=== PATIENT | female | born 1965 | race Caucasian/White ===

== ENCOUNTER 2023-03-10 09:45 | Outpatient (REF) | payer SELFPAY ==
[2023-03-12 23:53] LABS: TS Negative Control Passed; TS Panel A 0; TS Panel B 0; TS Positive Control Passed; TSpotTB Negative (Negative)
== END 2023-03-10 09:46 | disposition home or self-care (01) ==
LOC: HO.HSH 09:45
PROVIDERS: Visit Provider Internal Medicine
DX: Z02.1 Encounter for pre-employment examination (principal)
CPT/HCPCS: 36415; 86481

== ENCOUNTER 2025-08-17 22:08 | Inpatient (IN) | payer OTHER, SELFPAY ==
--- NOTE | ~2025-08-17 | NM_ITS ---
EXERCISE MYOCARDIAL PERFUSION STUDY INDICATION: Elevated troponin and chest pain to evaluate for myocardial ischemia TECHNIQUE: The patient was brought in for an exercise perfusion study on 08/20/2025. Patient performed exercise as per Sb protocol and was injected 30 mCi of sestamibi once target heart rate was achieved. Images were obtained using the SPECT gamma camera interlaced with the gating device. Images were obtained in supine position. Resting perfusion study was performed on 08/20/2025. Patient was administered 10 mCi of sestamibi intravenously at rest. Images were then obtained in supine position. Images obtained without without CT attenuation. Total DLP 61 mGy-cm. Images were processed with the software and compared side to side in short axis, horizontal long axis and vertical long axis views. FINDINGS: Raw images were reviewed The stress perfusion study showed nonattenuated images show minimal thinning of the basal septum as well as basal inferior wall of the LV myocardium. Remainder of the LV myocardium is normally perfused. Attenuated corrected images show minimal thinning of the apex of the LV myocardium. The gated study shows normal LV systolic function with calculated LVEF of 69%. LV cavity is normal in size. The gated study shows normal systolic wall thickening and contraction of segments. Resting study shows no change in perfusion pattern compared to stress perfusion study. Gating at rest reveals normal systolic wall motion with ejection fraction at 65%. The findings are consistent with normal myocardial perfusion. NM/NM jac perf SPECT rest & str IMPRESSION: 1. Myocardial perfusion imaging study shows normal myocardial perfusion. 2. Gated LVEF is 69%. 3. Transient ischemic dilatation not present. EKG revealed negative for ischemia. Electronically signed by: Fuad Zuniga MD 08/20/2025 01:16 PM EDT
--- NOTE | ~2025-08-17 | XR_ITS ---
CLINICAL HISTORY: cp 1 view chest x-ray Comparison: None provided Findings: Lungs are well inflated. Cardiac silhouette is within normal limits. No focal areas of consolidation. A few areas of apparent increased density within the right lung are likely related to areas of increased density within the right anterior 4th, 5th, and 6th ribs. No pleural effusion or pneumothorax. IMPRESSION: 1. No acute findings. This document has been electronically signed by: Issac Vidales MD on 08/18/2025 00:34:34
--- NOTE | 2025-08-17 22:14 | ECG_ITS ---
Test Reason : CHEST PAIN Blood Pressure : */* mmHG Vent. Rate : 96 BPM Atrial Rate : 96 BPM P-R Int : 136 ms QRS Dur : 84 ms QT Int : 340 ms P-R-T Axes : 82 40 72 degrees QTcB Int : 429 ms Normal sinus rhythm Normal ECG When compared with ECG of 17-Aug-2025 22:12, No significant change was found Referred By: Rae Spaulding Electronically Signed By: MILLY SCHROEDER
[2025-08-17 22:21] VITALS: BP 109/74; PULSE 89; RESP 16; TEMP 36.7; O2SAT 96; BMI 21.7
[2025-08-17 22:37] LABS: MANUAL DIFF FLAG NO
[2025-08-17 22:38] LABS: Hematocrit 37.0 % (37.0-47.0); Hemoglobin 13.0 g/dl (12.0-16.0); Imm Gran Abs Auto 0.06 X10*3/uL (0.00-0.03); Imm Gran Pct Auto 0.5 % (0.0-0.4); Lymphocytes Absolute Auto 4.9 X10*3/uL (1.2-4.9); Mean Corpuscular HGB Conc 35.1 g/dl (31.0-35.0); Mean Corpuscular Hemoglobin 31.0 pg (27.0-33.0); Mean Corpuscular Volume 88.3 fL (80.0-98.0); NRBC Abs Auto 0.000 X10*3/uL (0.0-0.012); NRBC Pct Auto 0.0 /100WBC (0.0-0.2); Platelet Count 292 X10*3/uL (160-400); Red Blood Count 4.19 X10*6/uL (4.20-5.50); White Blood Count 11.3 X10*3/uL (4.8-10.8)
[2025-08-17 22:51] LABS: Alanine Aminotransferase 40 U/L (0-31); Albumin Level 4.5 g/dL (3.5-5.0); Alkaline Phosphatase 106 U/L (39-117); Anion Gap 12 (12-20); Aspartate Amino Transferase 50 U/L (5-31); Blood Urea Nitrogen 28 mg/dL (9-16); Calcium 9.3 mg/dL (8.4-10.2); Carbon Dioxide 24 mmol/L (22-29); Chloride 109 mmol/L (96-108); Creatinine Clr Calc Pharmacy 38.6; Estimated Glomerular Filt Rate 45; Potassium 4.3 mmol/L (3.3-5.1); Sodium 141 mmol/L (135-145); Total Protein 6.9 g/dL (6.5-8.0)
[2025-08-17 22:58] LABS: Troponin-I High Sensitivity 30.5 ng/L (<3.5-17.0)
[2025-08-17 23:16] VITALS: BP 115/71; PULSE 101; RESP 18; TEMP 36.8; O2SAT 94
--- NOTE | 2025-08-17 23:28 | PC.NURSE ---
this Rn assumed care of pt, pt states chest pain started earlier today, no trauma. first time this has happened, chest pain was more like pressure with aching in the back, reports taking her HR and it was 60 an then 140, she came in to the ED. pt hx of high b/p, did not take medication today as b/p was low systolic 100 per pt. current b/p 115/71. HR currently 98%, pt placed on monitor, other v/s WNL. pt states chest pressure has now resolved.
--- NOTE | 2025-08-17 23:34 | ED_ITS ---
HPI - Chest Pain General Chief Complaint: Chest Pain Stated Complaint: CP increase heart rate Time Seen by Provider: 08/17/25 23:20 History of Present Illness HPI narrative: Patient is a 59-year-old female presents today with having chest pain since approximately 13:00. The pain is sharp it is mid chest. Has fairly constant associated with some shortness of breath earlier worse with deep breath earlier. Patient denies any history of diabetes, hypertension, high cholesterol, smoking, mi. no history of travel. No history of leg swelling no history of blood clots no history of tumor no history of hormone replacement. Patient claims that on the drive in the symptoms seems to have improved and currently has no pain. No history of risk stratification done in the past. Patient's BMI is normal at 21.7. Related Data Allergies Allergy/AdvReac Type Severity Reaction Status Date / Time No Known Allergies Allergy Verified 08/17/25 22:22 Review of Systems 2 Review of Systems: Positive chest pain Yes all other systems are reviewed and are negative PMFSH Past Medical History Attestation statement: The following information was validated with the patient. Social History Social History Smoked in Last 30 Days: No Use of substances other than those prescribed or required for medical reasons: No Advance Directives: No Advance Directives Information Provided: Yes Physical Exam 2 Exam: Exam: Appearance: Alert. Oriented X3. No acute distress. Eyes: Pupils equal, round and reactive to light. ENT: Pharynx normal. Neck: Normal inspection. Neck supple. No lymph nodes noted. No crepitus CVS: Normal heart rate and rhythm. Pulses normal. Normal S1 and S2 Respiratory: No respiratory distress. Breath sounds normal. No Wheezing. No rales Abdomen: Soft and nontender. No rigidity. No distention. good BS x4 Skin: Skin warm and dry. Normal skin color. Normal skin turgor. Extremities: No lower extremity edema. Neurovascular intact to all extremities. No Lacerations. No Rash Neuro: Oriented X 3. No motor deficit. No sensory deficit. Moving all extermities. No slurred speech Vital Signs: Vital Signs: Last Vital Signs Temp 98.2 F 08/17/25 23:16 Pulse 101 H 08/17/25 23:16 Resp 18 08/17/25 23:16 BP 115/71 08/17/25 23:16 Pulse Ox 94 08/17/25 23:16 O2 Del Method Room Air 08/17/25 23:16 BMI result Body Mass Index 21.7 Medical Decision Making Medical Decision Making [facility] Narrative: Well-appearing no acute distress my interpretation patient's EKG showed a sinus rhythm heart rate is 100 ME QRS QTC normal no acute ST segment elevation interestingly patient has an slightly increased heart rate has chest pain that is worse with deep inspiration a D-dimer was ordered otherwise there is no calf tenderness there is no other risk for PE. Patient's troponin 1st set came back at 30. Significantly elevated. A 2nd EKG being done. A 2nd troponin being done. Will monitor very carefully. Currently pain free. Already took a full aspirin prior to arrival. My interpretation patient's repeat EKG showed a sinus rhythm heart rate again is about 100 ME QRS QTC normal no acute ST segment elevation noted 2nd troponin is now pending. Second EKG was done at 23:43. Patient's troponin went from 30-39. Started patient on Lovenox. Case discussed with cardiology agree with plan of admission case discussed with hospitalist service patient to be admitted. Patient made aware of the finding. Differential Diagnosis Differential Diagnoses: The differential diagnosis associated with the presentation includes NSTEMI versus STEMI versus PE versus pneumonia Admission/Observation Consideration of admission/observation: Escalation of care including admission/observation considered Consult Healthcare Provider Management of the patient was discussed with: Hospitalist and Patient Access Director (Cardiology) Lab Data [facility] Lab Attestation statement: I reviewed the patient's lab results. 08/17/25 22:31 08/17/25 22:31 Labs: Lab Results 08/17/25 08/17/25 Range/Units 22:31 23:53 WBC 11.3 H (4.8-10.8) X10*3/uL RBC 4.19 L (4.20-5.50) X10*6/uL Hgb 13.0 (12.0-16.0) g/dl Hct 37.0 (37.0-47.0) % MCV 88.3 (80.0-98.0) fL MCH 31.0 (27.0-33.0) pg MCHC 35.1 H (31.0-35.0) g/dl RDW 12.0 (11.0-16.0) % Plt Count 292 (160-400) X10*3/uL MPV 8.3 L (9.4-12.3) fL Immature Gran % (Auto) 0.5 H (0.0-0.4) % Neut % (Auto) 47.1 (45-73) % Lymph % (Auto) 43.2 H (20-40) % Day % (Auto) 7.5 (2-11) % Eos % (Auto) 1.3 (0-4) % Baso % (Auto) 0.4 (0-2) % Lymph # (Auto) 4.9 (1.2-4.9) X10*3/uL Day # (Auto) 0.9 (0.1-1.2) X10*3/uL Eos # (Auto) 0.2 (0.0-0.4) X10*3/uL Baso # (Auto) 0.1 (0.0-0.2) X10*3/uL Abs Immat Gran (auto) 0.06 H (0.00-0.03) X10*3/uL Absolute Neuts (auto) 5.3 (2.0-8.3) x10*3/uL Absolute Nucleated RBC 0.000 (0.0-0.012) X10*3/uL Nucleated RBC % (auto) 0.0 (0.0-0.2) /100WBC D-Dimer High Sensitivty < 150 NG/ML Sodium 141 (135-145) mmol/L Potassium 4.3 (3.3-5.1) mmol/L Chloride 109 H (96-108) mmol/L Carbon Dioxide 24 (22-29) mmol/L Anion Gap 12 (12-20) BUN 28 H (9-16) mg/dL Creatinine 1.21 (0.5-1.4) mg/dL Estim Creat Clear Calc 38.6 Estimated GFR 45 Random Glucose 107 (60-115) mg/dL Calcium 9.3 (8.4-10.2) mg/dL Total Bilirubin 0.2 (0.0-1.0) mg/dL AST 50 H (5-31) U/L ALT 40 H (0-31) U/L Alkaline Phosphatase 106 (39-117) U/L Troponin I High Sens 30.5 H 39.0 H (<3.5-17.0) ng/L Total Protein 6.9 (6.5-8.0) g/dL Albumin 4.5 (3.5-5.0) g/dL Independent Interpretation I performed an independent interpretation of an: EKG (Sinus heart rate is 100 ME QRS QTC normal no acute ST segment elevation. Repeat EKG showed approximately the same) and Plain X-Ray (Chest x-ray negative no pneumonia no pneumothorax) Radiology Impression Discussion of test interpretation with radiology: I have reviewed the radiologist's reading. Independent Historian Clinical information obtained from an independent historian. History obtained from or confirmed by: Spouse Chronic Conditions Family history of coronary artery disease Critical Care Time Critical Care Time Critical Care Time: Yes Total Critical Care Time: 40 Attestation: I have personally provided 40 minutes of critical care time exclusive of time spent on separately billable procedures. ?Time includes review of lab data, radiology results, discussion with consultants, and monitoring for potential decompensation. ?Interventions were performed as documented above Discharge Plan Discharge Clinical Impression: Non-ST elevation OR (NSTEMI) Patient Disposition: Admitted As Inpatient Print Language: Moldovan
--- NOTE | 2025-08-17 23:36 | ECG_ITS ---
Test Reason : CP Blood Pressure : */* mmHG Vent. Rate : 105 BPM Atrial Rate : 105 BPM P-R Int : 140 ms QRS Dur : 84 ms QT Int : 316 ms P-R-T Axes : 75 32 65 degrees QTcB Int : 417 ms Sinus tachycardia Possible Anterior infarct , age undetermined Abnormal ECG No previous ECGs available Referred By: Rae Spaulding Electronically Signed By: MILLY SCHROEDER
[2025-08-18] VITALS (8 sets, daily range): BP systolic 99–129; BP diastolic 61–81; PULSE 68–87; RESP 14–20; TEMP 36–36.6; O2SAT 96–99; BMI 21.9; BMI 22.1
--- OUTSIDE RECORDS SUMMARY | 2025-08-18 00:08 | XMS_ITS | Clinical Summary ---
Author Organization [facility] Address [address] [place], [place] [id number] Care Team Providers Care Applied Psychology Teacher Name Role Phone Pcp, No Primary Care Provider Unavailabl e Allergies No known active allergies Medications lisinopril (PRINIVIL,ZeSTR IL) 40 MG tablet Take 40 mg by mouth. 04/25/2025 Active propranolol (INDERAL) 20 MG tablet Take 20 mg by mouth 3 (three) times a day. Active thyroid (ARMOUR) 60 MG tablet Take 60 mg by mouth daily. Active DULoxetine (CYMBALTA) 60 MG capsule Take 60 mg by mouth daily. Active buPROPion (WELLBUTRIN XL) 300 MG 24 hr tablet Take 300 mg by mouth every morning. Swallow whole; do not crush, chew, or divide. Active alendronate (FOSAMAX) 70 MG tablet Take 70 mg by mouth once a week. 05/06/2025 Active Encounters Date Type Department Care Team Description 07/11/2025 2:25 PM EDT Office Visit [facility] [address] [phone] Piyush Bee MD Nguyen, Nam V, PA Hypertension, unspecified type (Primary Dx); Acute nonintractable headache, unspecified headache type 07/11/2025 Travel from Last 3 Months Social History Tobacco Use Types Packs/Day Years Used Date Smoking Tobacco: Never Smokeless Tobacco: Never Tobacco Cessation:Counseling Given: Not Answered Comments Unknown Sex and Gender Information Value Date Recorded Sex Assigned at Not on file Legal Sex Female 5:30 PM EDT Gender Identity Not on file Sexual Orientation Not on file Last Filed Vital Signs Vital Sign Reading Time Taken Comments Blood Pressure 154/83 07/11/2025 2:59 PM EDT Pulse 78 07/11/2025 2:34 PM EDT Temperature 36.6 C (97.9 F) 07/11/2025 2:34 PM EDT Respiratory Rate 18 07/11/2025 2:34 PM EDT Oxygen Saturation 100% 07/11/2025 2:34 PM EDT Inhaled Oxygen Concentration - - Weight 53.1 kg (117 lb) 07/11/2025 2:34 PM EDT Height 158.8 cm (5' 2.5 ) 07/11/2025 2:34 PM EDT Body Mass Index 21.06 07/11/2025 2:34 PM EDT Plan of Treatment Health Maintenance Due Date Last Done Comments Hepatitis C Virus Screening 1963 HIV Screening 1976 DTaP/Tdap/Td Vaccines (1 - Tdap) 1982 Pap Smear (Ages 21-65) 1984 Mammogram 2003 Colonoscopy 2008 Pneumococcal Vaccines 50+ (1 of 1 - PCV) 2013 Zoster (Shingles) Vaccine (1 of 2) 2013 RSV Vaccine 60 years and old er and Patients (1 - Risk 60-74 years 1-dose series) 2023 Influenza Vaccine 06/15/2025 COVID-19 Vaccine ( - 2023-2 5 season) 2025 Hepatitis B Vaccines Aged Out No long er eligible based on patient's age to complete this topic Procedures Procedure Name Priority Date/Time Associated Diagnosis Comments ECG 12-LEAD Routine 07/11/2025 2:59 PM EDT Hypertension, unspecified type from Last 3 Months Results * ECG 12 lead (07/11/2025 2:59 PM EDT) 07/11/2025 2:59 PM EDT Impressions Crystal Eli RT - 07/11/2025 2:59 PM EDT Normal sinus rhythm with a rate of 77. No ST elevations or depressions. No T wave inversions. ELDER Seth ECG ORDERABLES Final Result from Last 3 Months Insurance [employer] [place] [id number] [place] [id number] Care Teams Applied Psychology Teacher Relationship Specialty Start Date End Date Pcp, No PCP - General General Medicine 07/11/25
--- OUTSIDE RECORDS SUMMARY | 2025-08-18 00:08 | XMS_ITS | Encounter Summary ---
Author Organization [facility] Address [address] [place] [address] Care Team Providers Care Obstetric Anaesthetist Name Role Phone Pcp, No Primary Care Provider Unavailabl e Encounter Details Date Type Department Care Team (Late st Contact Info) Description 11/23/2022 Erroneous Encounter [facility] DEPT [address] [facility] [place] [address] Provider, MD Melvi Social History Tobacco Use Types Packs/Day Years Used Date Smoking Tobacco: Never Assessed Comments Unknown Sex and Gender Information Value Date Recorded Sex Assigned at Not on file Legal Sex Female 5:30 PM EDT Gender Identity Not on file Sexual Orientation Not on file documented as of this encounter Plan of Treatment Not on file documented as of this encounter Visit Diagnoses Not on filedocumented in this encounter Care Teams Obstetric Anaesthetist Relationship Specialty Start Date End Date Pcp, No PCP - General General Medicine 07/11/25 documented as of this encounter
--- OUTSIDE RECORDS SUMMARY | 2025-08-18 00:08 | XMS_ITS ---
Author Name [facility] Organization Unknown History of Medication Use Medication Directions Dispensed Refills Start Date End Date Stat us alendronate (FOSAMAX) 70 MG tablet Take 70 mg by mouth once a week. 05/06/2025 active lisinopril (PRINIVIL,ZeSTRIL) 40 MG tablet Take 40 mg by mouth. 04/25/2025 active buPROPion (WELLBUTRIN XL) 300 MG 24 hr tablet Take 300 mg by mouth every morning. Swallow whole; do not crush, chew, or divide. active DULoxetine (CYMBALTA) 60 MG capsule Take 60 mg by mouth daily. active propranolol (INDERAL) 20 MG tablet Take 20 mg by mouth 3 (three) times a day. active thyroid (ARMOUR) 60 MG tablet Take 60 mg by mouth daily. active Problems Problem Status Onset Date Problem Type Date of Resolution Source Hypertension, unspecified type active EncounterDiagnosisAct CCT Acute nonintractable headache, unspecified headache type active EncounterDiagnosisAct CCT Encounters Encounter Type Encounter Reason Primary Diagnosis Location Date Ambulatory Hypertension Hypertension [facility] [employer] [facility] 07/11/2025 Care Team Organization Name Specialty Phone Email Start Date End Da te [facility] PCP Power Equipment Mechanics Instructor 07/11/2025 08/09/2025 [employer] 07/11/2025 [facility] NO PCP Primary Care 07/11/2025
[2025-08-18 00:10] LABS: D Dimer High Sensitivity < 150 NG/ML
[2025-08-18 00:19] LABS: Troponin-I High Sensitivity 39.0 ng/L (<3.5-17.0)
--- NOTE | 2025-08-18 00:49 | PC.NURSE ---
Lovenox not in stock in ED, house sup advised.
--- NOTE | 2025-08-18 00:59 | PM.IMHP ---
History of Present Illness Date of Service: 08/18/25 Attending physician on admission: Don Cedeño Chief Complaint: Chest pain Pt is a 59 yo female with PMH exposure to secondhand smoke as a child, hypothyroidism, hypertension currently on lisinopril and amlodipine, anxiety, essential tremor on propranolol PRN, osteoporosis with chronic compression fractures of the spine on Fosamax, history of vertebroplasty, hysterectomy, right foot/ankle injury presents to ED with complaints of hypertension, tachycardia and chest pressure/chest pain that started earlier in the day. Patient had lunch with her sister and then returned home with a sensation in her chest that felt unusual. Patient also felt that she was numb in both arms. Patient denies any cervical spine issues. Patient denied any shortness of breath, productive cough, headache, fever, nausea or vomiting. Patient has a home blood pressure monitor and continued to monitor pressure. Patient's blood pressure was reading on the low side, 90's over 70's to 115 systolic with a tachycardia approximately 140. Patient was checking her watch and it was noted that she was sinus with no arrhythmia. 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 Patient did take 1 dose of propranolol which had no effect on her heart rate. Patient discussed things with her spouse and it was decided that patient should come in to be seen. Patient does offer that she has been having increased stress at work. Patient denies active tobacco use, drinks alcohol on occasion only and denies marijuana use. Patient has no illicit drug history. Workup in the ED included chest x-ray which was negative for any acute findings, EKG as well as posterior EKG were was negative for STEMI and no new left bundle-branch block. EKG reading is normal sinus rhythm with normal QTC, 96 beats per minute. No ST elevations or signs of ischemia. No T-wave inversions or ST depressions. Patient's labs note a mild leukocytosis, AST 50, ALT 40. Troponins 30.5 than 39.0. TSH 3.12. Patient deferred testing for COVID, flu and RSV. Vital signs currently stable blood pressure 132/71, heart rate 89, respiratory rate 18, pulse ox 98% on room air. Patient remains afebrile. Patient currently chest pain-free and states her symptoms have resolved. Patient understands that she had being admitted under observation for echo in the morning and review by Cardiology. Patient does state she has been working with a newer nurse practitioner in regards to her blood pressure control. Patient has gone to urgent care intermittently for elevated blood pressure being on lisinopril and amlodipine. Hydrochlorothiazide has not been introduced so far. Renal function is stable. Patient does take propranolol PRN for essential tremor. Review of Systems Review of Systems: Patient currently denies any chest pain, shortness breath at rest, nausea, vomiting, diarrhea or constipation. Patient is not having any abdominal pain. Patient denies any unexplained weight loss, headaches visual changes. Patient is experiencing some increased stress related to work. Yes all other systems are reviewed and are negative [facility] Medical History (Updated 08/18/25 @ 01:52 by MIRANDA Ca) Right foot injury Osteoporosis Post hysterectomy menopause Anxiety Essential tremor Hypothyroidism Hypertension Cognitive capacity: Alert and orientated x3 Functional capacity: independent ambulation Patient : No Pertinent family history: Father age 70 from COPD, mother age 80 from COPD Surgical History (Updated 08/18/25 @ 01:51 by MIRANDA Ca) H/O vertebroplasty Social History Patient Tobacco Use Status: Never used Tobacco Smoked in Last 30 Days: No Use of substances other than those prescribed or required for medical reasons: No Advance Directives: No Advance Directives Information Provided: Yes Nutrition Risks: No Nutritional Risk Patient : No Ebola Risk: Travel/Contact With Anyone From Affected Area/s: No Has Patient Experienced Ebola Symptoms: No Meds Allergies Allergy/AdvReac Type Severity Reaction Status Date / Time No Known Allergies Allergy Verified 08/17/25 22:22 Active Medications: Current Medications Acetaminophen (Acetaminophen 325 Mg Tablet) 650 mg PO Q6H PRN PRN Reason: Pain, Mild 1-3,fever,headache Albuterol/Ipratropium (Albuterol/Iprat 2.5/0.5mg 3 Ml Ampul.Neb) 3 ml INHALE Q4H PRN PRN Reason: Shortness of Breath/Wheezing Aspirin (Aspirin Enteric Coated 81 Mg Tablet.Dr) 81 mg PO DAILY [facility] Calcium Carbonate (Calcium Carbonate 750 Mg Tab.Chew) 750 mg PO Q4H PRN PRN Reason: Heartburn Enoxaparin Sodium (Enoxaparin Sodium 60 Mg/0.6 Ml Syringe) 50 mg 1 mg/kg (50 mg) SUBCUT ONCE ONE Stop: 08/18/25 12:31 Magnesium Hydroxide (Milk Of Magnesia 30 Ml Oral.Susp) 30 ml PO DAILY PRN PRN Reason: Constipation Melatonin (Melatonin 3 Mg Tablet) 6 mg PO BEDTIME PRN PRN Reason: Insomnia Ondansetron HCl (Ondansetron Hcl 4 Mg/2 Ml Vial) 4 mg IVPUSH Q8H PRN PRN Reason: Nausea and Vomiting Polyethylene Glycol (Polyethylene Glycol 3350 17 Gm Powd.Pack) 17 gm PO DAILY PRN PRN Reason: Constipation Senna (Sennosides 8.6 Mg Tablet) 17.2 mg PO BEDTIME [facility] Sodium Chloride (0.9 % Sodium Chloride Flush 3 Ml Syringe) 3 ml IVFLUSH QSHIFT [facility] Physical Exam Vital Signs and Narrative: Vital Signs: Last Vital Signs Temp 98.2 F 08/17/25 23:16 Pulse 101 H 08/17/25 23:16 Resp 18 08/17/25 23:16 BP 115/71 08/17/25 23:16 Pulse Ox 94 08/17/25 23:16 O2 Del Method Room Air 08/17/25 23:16 BMI result Body Mass Index 21.7 Alert and orientated X3, able to give good history. Neuro: CN II-X11 intact, no deficits, visual acuity intact EYES: PERRLA, EOM intact, sclerae nonicteric ENT: hearing intact, no issues with swallowing, lips moist, nares patent no epistaxis Cardiac: S1 S2 RRR, no murmur, no JVD, no edema in Lower ext Pulmonary: lungs clear to auscultation B Abdominal: BS active in all 4 quadrants, no guarding, tenderness, rebounding MSK: strength 5/5 upper and lower extremities : no CVA tenderness no bladder distension Extremities: no edema in lower extremities, PT and DP pulses palpable +2 Psych: mood stable, judgement and insight good Skin: No new rashes or lesions Results Labs 08/18/25 01:42 08/17/25 22:31 Labs: Laboratory Results - last 24 hr 08/17/25 08/17/25 22:31 23:53 MCV 88.3 MCH 31.0 MCHC 35.1 H RDW 12.0 Plt Count 292 MPV 8.3 L Immature Gran % (Auto) 0.5 H Neut % (Auto) 47.1 Lymph % (Auto) 43.2 H [place] % (Auto) 7.5 Eos % (Auto) 1.3 Baso % (Auto) 0.4 Lymph # (Auto) 4.9 [place] # (Auto) 0.9 Eos # (Auto) 0.2 Baso # (Auto) 0.1 Abs Immat Gran (auto) 0.06 H Absolute Neuts (auto) 5.3 Absolute Nucleated RBC 0.000 Nucleated RBC % (auto) 0.0 D-Dimer High Sensitivty < 150 Anion Gap 12 Estim Creat Clear Calc 38.6 Estimated GFR 45 Random Glucose 107 Calcium 9.3 Total Bilirubin 0.2 AST 50 H ALT 40 H Alkaline Phosphatase 106 Troponin I High Sens 30.5 H 39.0 H Total Protein 6.9 Albumin 4.5 ECG Attestation: I personally reviewed and interpreted this ECG as follows: (Normal sinus rhythm with normal QTC no evidence of STEMI or ischemic changes) Prior ECG tracings: available for review Imaging Radiologist's Impressions: Chest x-ray No acute finding Assessment and Plan (1) Non-ST elevation [place] (NSTEMI): Status: Acute Plan Pt is a 59 yo female with PMH exposure to secondhand smoke as a child, hypothyroidism, hypertension currently on lisinopril and amlodipine, anxiety, essential tremor on propranolol PRN, osteoporosis with chronic compression fractures of the spine on Fosamax, history of vertebroplasty, hysterectomy, right foot/ankle injury presents to ED with complaints of hypertension, tachycardia and chest pressure/chest pain that started earlier in the day. Patient being admitted under observation as recommended by Cardiology and was started on weight based Lovenox, aspirin daily. Chest pain/ ?NSTEMI Pt started on WT BASED lovenox Cardiology consulted ECHO ordered for AM Telemetry ASA 81 mgs daily Lipid panel and A1C pending ECGs negative for STEMI, Posterior ECG negative for STEMI Troponins trending 30 - 39 - 36.5 Hypertension Patient has been on lisinopril and amlodipine Recently blood pressure has been elevated and patient has sought care with her PCP and urgent care setting Optimizing blood pressure is 1 of patient's current medical goals Cardiac Low-sodium diet Anxiety/ Stress Continue Wellbutrin and Cymbalta once med rec completed QTC normal Patient can benefit from nonpharmacological maneuvers to help relieve stress including exercise as tolerated, relaxation techniques including meditation, yoga Hypothyroidism Continue levothyroxine once med rec is completed TSH within normal limits Osteoporosis with history of compression fractures of the spine and vertebroplasty Continue Fosamax Bone density testing as an outpatient for follow up DVT prophylaxis: Lovenox Med rec pending Full code status Quality Stroke Does the patient have a stroke diagnosis?: No Reason for No Anti-thrombotic by Day Two: N/A - Med Ordered VTE Prior VTE?: No VTE Risk Level:: Medical - moderate - high VTE Device Contraindication: N/A - Device Ordered VTE Drug Contraindication: N/A - Med Ordered
[2025-08-18 01:33] LABS: Magnesium 2.1 mg/dL (1.6-2.6)
[2025-08-18 02:03] LABS: Hematocrit 35.9 % (37.0-47.0); Hemoglobin 12.5 g/dl (12.0-16.0); Mean Corpuscular HGB Conc 34.8 g/dl (31.0-35.0); Mean Corpuscular Hemoglobin 30.9 pg (27.0-33.0); Mean Corpuscular Volume 88.6 fL (80.0-98.0); NRBC Abs Auto 0.000 X10*3/uL (0.0-0.012); NRBC Pct Auto 0.0 /100WBC (0.0-0.2); Platelet Count 303 X10*3/uL (160-400); Red Blood Count 4.05 X10*6/uL (4.20-5.50); White Blood Count 10.5 X10*3/uL (4.8-10.8)
[2025-08-18 02:10] LABS: INTERNATIONAL NORM RATIO 0.9 (0.9-1.1); Prothrombin Time 10.1 SEC (10.9-12.4); Troponin-I High Sensitivity 36.5 ng/L (<3.5-17.0)
[2025-08-18 02:13] LABS: Partial Thromboplastin Time 35.3 SEC (26.7-34.1)
[2025-08-18 06:24] LABS: MANUAL DIFF FLAG NO
[2025-08-18 06:34] LABS: Hematocrit 37.7 % (37.0-47.0); Hemoglobin 12.4 g/dl (12.0-16.0); Imm Gran Abs Auto 0.04 X10*3/uL (0.00-0.03); Imm Gran Pct Auto 0.5 % (0.0-0.4); Lymphocytes Absolute Auto 4.2 X10*3/uL (1.2-4.9); Mean Corpuscular HGB Conc 32.9 g/dl (31.0-35.0); Mean Corpuscular Hemoglobin 30.5 pg (27.0-33.0); Mean Corpuscular Volume 92.6 fL (80.0-98.0); NRBC Abs Auto 0.000 X10*3/uL (0.0-0.012); NRBC Pct Auto 0.0 /100WBC (0.0-0.2); Platelet Count 268 X10*3/uL (160-400); Red Blood Count 4.07 X10*6/uL (4.20-5.50); White Blood Count 8.2 X10*3/uL (4.8-10.8)
[2025-08-18 06:42] LABS: Hemoglobin A1C 109.6324 umol/L; Total Hemoglobin (HGBA1C) 3270.2846 umol/L
[2025-08-18 06:46] LABS: Alanine Aminotransferase 37 U/L (0-31); Albumin Level 4.2 g/dL (3.5-5.0); Alkaline Phosphatase 100 U/L (39-117); Anion Gap 11 (12-20); Aspartate Amino Transferase 35 U/L (5-31); Blood Urea Nitrogen 27 mg/dL (9-16); Calcium 9.0 mg/dL (8.4-10.2); Carbon Dioxide 25 mmol/L (22-29); Chloride 109 mmol/L (96-108); Cholesterol 224 mg/dL (<200); Creatinine Clr Calc Pharmacy 53.6; Estimated Glomerular Filt Rate > 60; HDL Cholesterol 91 mg/dL (>40); Potassium 4.1 mmol/L (3.3-5.1); Sodium 141 mmol/L (135-145); Total Protein 6.7 g/dL (6.5-8.0); Triglycerides 169 mg/dL (<150)
[2025-08-18] MEDS: 0.9 % Sodium Chloride Flush 3 ML SYRINGE IVFLUSH ×2 (07:27→15:54)
--- NOTE | 2025-08-18 07:36 | PC.NURSE ---
Assumed care of patient. Pt is A+Ox4, calm, cooperative. Pt denies any pain or complaints at this time. RR even and unlabored, denies CP or SOB.
[2025-08-18 07:50] LABS: Reflex LDLD? No
[2025-08-18] MEDS: Aspirin Enteric Coated 81 MG TABLET.DR PO (08:25)
--- NOTE | 2025-08-18 08:51 | PM.EVENT ---
Event Note Date of Service: 08/18/25 Event Note: Patient seen and examined earlier by the hospitalist service. Seen and examined again Chest pain seems to be improved Physical exam and assessment and plan per H&P Cardiac evaluation noted-echo, Lovenox of the therapeutic, may need stress test on Wednesday. Time Spent With Patient Time: Total time managing care of this patient today ____ minutes.
--- NOTE | 2025-08-18 08:54 | HO.NURTONUR ---
59 F presents to ED with CP that started at 1pm on 08/17/25. Pain was sharp, mid chest. Pt denies CP at this time. Pt sts had some SOB at the time but denies SOB now. A+Ox4, calm, cooperative. Pt has 22G RAC IV. Ambulates without difficulty. CXR Clear Labs: WBC 11.3-> 8.2, hgb 12.4/hct 37.7, PT 10.1, INR 0.9, APTT 35.3, D-Dimer <150, Chloride 109, ANion gap 11, BUN 27, Creatinine 0.87, AST 35, ALT 37, *TROP 39->36.5, Triglycerides 169, Cholesterol 224, LDL cholesterol 100 Admit for CP, elevated trop
--- NOTE | 2025-08-18 09:16 | PHA.MEDREC ---
Pharmacy Consult ? Medication Reconciliation Pharmacy has completed the medication reconciliation. Spoke to patient and completed med rec using claims history and patient conversation. Patient was able to name her medications but was unsure of dosing so confirmed doses with pharmacy claims. She states she got the cyclobenzaprine filled, but didn't find it helpful so stopped taking it.
--- NOTE | 2025-08-18 09:54 | PM.CNCAR ---
History of Present Illness History of Present Illness Date of Service: 08/18/25 Chief complaint: Chest Pain Narrative: This is a cardiology consultation regarding chest pain and elevated troponins. Patient has no previous cardiac history. She has got hypertension on medications. Apparently, had lunch with the sister and the done home. Following this, she had sensation in her chest that felt unusual. She felt a discomfort/pressure and at the same time she also felt her upper extremities are somewhat numb on with some discomfort in the posterior part of the arms. She checked her heart rate with the blood pressure monitor and that showed heart rate in the 140s. That lasted for several hours and then came to the ER for evaluation. Troponins were checked and they were slightly elevated and hence she was admitted. Currently, she states she feels fine. There has been no detection of arrhythmia while she is here. Review of Systems Review of Systems: Yes all other systems are reviewed and are negative Constitutional: Constitutional: Reports as per HPI and Reports no additional constitutional complaints Eyes: Eyes: Reports as per HPI and Denies no additional eye complaints ENT: Denies system reviewed and no additional complaints, except as documented and Reports as per HPI Cardiovascular: Cardiovascular: Reports as per HPI, Reports no additional cardiovascular complaints, Denies acrocyanosis, Denies cool extremities, Reports chest pain, Denies leg edema, Denies lightheadedness, Denies palpitations and Denies dyspnea Respiratory: Respiratory: Reports as per HPI, Denies no additional respiratory complaints and Denies dyspnea Gastrointestinal: Gastrointestinal: Reports as per HPI and Denies no additional gastrointestinal complaints Genitourinary: Genitourinary: Reports as per HPI Musculoskeletal: Musculoskeletal: Reports no additional musculoskeletal complaints and Reports as per HPI Integumentary/Breasts: Skin/Breast: Reports system reviewed and no additional complaints, except as docu Neurologic: Reports system reviewed and no additional complaints, except as documented and Reports as per HPI Psychiatric: Psychiatric: Reports no additional psychiatric complaints and Reports as per HPI Endocrine: Endocrine: Reports no additional endocrine complaints, Reports as per HPI and Denies palpitations Hematologic/Lymphatic: Hematologic/Lymphatic: Reports no additional hematologic/lymphatic complaints and Reports as per HPI Allergic/Immunologic: Allergic/Immunologic: Reports no additional allergic/immunologic complaints and Reports as per HPI [facility] Past Medical History Medical History (Updated 08/18/25 @ 09:58 by Saleem Bucio MD) Right foot injury Osteoporosis Post hysterectomy menopause Anxiety Essential tremor Hypothyroidism Hypertension Family History Family History (Updated 08/18/25 @ 09:57 by Saleem Bucio MD) Sister H/O heart surgery Brother Hypertension Surgical History Surgical History (Updated 08/18/25 @ 01:51 by Genet Mejia [facility]) H/O vertebroplasty Social History Social History Patient Tobacco Use Status: Never used Tobacco Smoked in Last 30 Days: No Use of substances other than those prescribed or required for medical reasons: No Advance Directives: No Advance Directives Information Provided: Yes Nutrition Risks: No Nutritional Risk Patient : No Travel History Ebola Risk: Travel/Contact With Anyone From Affected Area/s: No Has Patient Experienced Ebola Symptoms: No Meds Allergies Allergy/AdvReac Type Severity Reaction Status Date / Time No Known Allergies Allergy Verified 08/17/25 22:22 Active Medications: Current Medications Acetaminophen (Acetaminophen 325 Mg Tablet) 650 mg PO Q6H PRN PRN Reason: Pain, Mild 1-3,fever,headache Albuterol/Ipratropium (Albuterol/Iprat 2.5/0.5mg 3 Ml Ampul.Neb) 3 ml INHALE Q4H PRN PRN Reason: Shortness of Breath/Wheezing Aspirin (Aspirin Enteric Coated 81 Mg Tablet.Dr) 81 mg PO DAILY [facility] Last Admin: 08/18/25 08:25 Dose: 81 mg Calcium Carbonate (Calcium Carbonate 750 Mg Tab.Chew) 750 mg PO Q4H PRN PRN Reason: Heartburn Enoxaparin Sodium (Enoxaparin Sodium 60 Mg/0.6 Ml Syringe) 60 mg SUBCUT Q12H [facility] Magnesium Hydroxide (Milk Of Magnesia 30 Ml Oral.Susp) 30 ml PO DAILY PRN PRN Reason: Constipation Melatonin (Melatonin 3 Mg Tablet) 6 mg PO BEDTIME PRN PRN Reason: Insomnia Ondansetron HCl (Ondansetron Hcl 4 Mg/2 Ml Vial) 4 mg IVPUSH Q8H PRN PRN Reason: Nausea and Vomiting Polyethylene Glycol (Polyethylene Glycol 3350 17 Gm Powd.Pack) 17 gm PO DAILY PRN PRN Reason: Constipation Senna (Sennosides 8.6 Mg Tablet) 17.2 mg PO BEDTIME [facility] Sodium Chloride (0.9 % Sodium Chloride Flush 3 Ml Syringe) 3 ml IVFLUSH QSHIFT [facility] Last Admin: 08/18/25 07:27 Dose: 3 ml Home Medications ?Medication ?Instructions ?Recorded ?Confirmed ?Last Taken ?Type alendronate 70 mg tablet 70 mg PO LY@0900 08/18/25 08/18/25 08/12/25 History amlodipine 5 mg tablet 5 mg PO DAILY 08/18/25 08/18/25 08/16/25 History bupropion HCl 300 mg 24 hr tablet, 300 mg PO DAILY 08/18/25 08/18/25 08/17/25 History extended release calcium no.26 167 mg-magnesium 1 cap PO DAILY 08/18/25 08/18/25 08/17/25 History no.15 83 mg-zinc 5 mg capsule coenzyme Q10 10 mg capsule 10 mg PO TID 08/18/25 08/18/25 08/17/25 History duloxetine 60 mg capsule,delayed 60 mg PO BID 08/18/25 08/18/25 08/17/25 History release lisinopril 40 mg tablet 40 mg PO DAILY 08/18/25 08/18/25 08/16/25 History propranolol 10 mg tablet 10 mg PO DAILY 08/18/25 08/18/25 08/17/25 History thyroid (pork) 60 mg tablet ([employer] 60 mg PO DAILY@0600 08/18/25 08/18/25 08/17/25 History Thyroid) Physical Exam Vital Signs: Vital Signs: Last Vital Signs Temp 98 F 08/18/25 09:15 Pulse 80 08/18/25 09:15 Resp 16 08/18/25 09:15 BP 123/71 08/18/25 09:15 Pulse Ox 97 08/18/25 09:15 O2 Del Method Room Air 08/18/25 09:15 BMI result Body Mass Index 21.9 Const: General: comfortable and no acute distress Orientation/consciousness: patient oriented x3 HEENT: Other: Unremarkable Head: Yes normal to inspection Neck: Neck: Yes normal visual inspection Chest: Chest palpation & inspection: normal inspection of the chest Resp: Auscultation: clear to auscultation bilaterally Cardio: Palpation: normal PMI Heart sounds: S1 normal heart sound present, S2 normal heart sound present, no gallops, no murmurs and no rubs GI: Palpation (GI): Soft to palpation Back/Spine/Pelvis: Other: unremarkable Skin: General skin exam: no rashes or lesions noted Neuro: General: patient oriented x3 Extrem: General: Yes normal to inspection Psych: Mental Status: mental status grossly normal Objective Labs and Meds 08/18/25 06:18 08/18/25 06:18 Lab results: Laboratory Results - last 24 hr 08/17/25 08/17/25 08/18/25 22:31 23:53 01:42 WBC 11.3 H 10.5 RBC 4.19 L 4.05 L Hgb 13.0 12.5 Hct 37.0 35.9 L MCV 88.3 88.6 MCH 31.0 30.9 MCHC 35.1 H 34.8 RDW 12.0 12.0 Plt Count 292 303 MPV 8.3 L 8.7 L Immature Gran % (Auto) 0.5 H Neut % (Auto) 47.1 Lymph % (Auto) 43.2 H [place] % (Auto) 7.5 Eos % (Auto) 1.3 Baso % (Auto) 0.4 Lymph # (Auto) 4.9 [place] # (Auto) 0.9 Eos # (Auto) 0.2 Baso # (Auto) 0.1 Abs Immat Gran (auto) 0.06 H Absolute Neuts (auto) 5.3 Absolute Nucleated RBC 0.000 0.000 Nucleated RBC % (auto) 0.0 0.0 PT 10.1 L INR 0.9 APTT 35.3 H D-Dimer High Sensitivty < 150 Sodium 141 Potassium 4.3 Chloride 109 H Carbon Dioxide 24 Anion Gap 12 BUN 28 H Creatinine 1.21 Estim Creat Clear Calc 38.6 Estimated GFR 45 Random Glucose 107 Estimat Average Glucose Hemoglobin A1c % Calcium 9.3 Magnesium 2.1 Total Bilirubin 0.2 AST 50 H ALT 40 H Alkaline Phosphatase 106 Troponin I High Sens 30.5 H 39.0 H 36.5 H Total Protein 6.9 Albumin 4.5 Triglycerides Cholesterol LDL Cholesterol, Calc HDL Cholesterol TSH 3.12 08/18/25 06:18 WBC 8.2 RBC 4.07 L Hgb 12.4 Hct 37.7 MCV 92.6 MCH 30.5 MCHC 32.9 RDW 11.9 Plt Count 268 MPV 8.5 L Immature Gran % (Auto) 0.5 H Neut % (Auto) 40.0 L Lymph % (Auto) 50.6 H [place] % (Auto) 6.8 Eos % (Auto) 1.5 Baso % (Auto) 0.6 Lymph # (Auto) 4.2 [place] # (Auto) 0.6 Eos # (Auto) 0.1 Baso # (Auto) 0.1 Abs Immat Gran (auto) 0.04 H Absolute Neuts (auto) 3.3 Absolute Nucleated RBC 0.000 Nucleated RBC % (auto) 0.0 PT INR APTT D-Dimer High Sensitivty Sodium 141 Potassium 4.1 Chloride 109 H Carbon Dioxide 25 Anion Gap 11 L BUN 27 H Creatinine 0.87 Estim Creat Clear Calc 53.6 Estimated GFR > 60 Random Glucose 95 Estimat Average Glucose 103 Hemoglobin A1c % 5.2 Calcium 9.0 Magnesium Total Bilirubin 0.2 AST 35 H ALT 37 H Alkaline Phosphatase 100 Troponin I High Sens Total Protein 6.7 Albumin 4.2 Triglycerides 169 H Cholesterol 224 H LDL Cholesterol, Calc 100 H HDL Cholesterol 91 TSH ECG Interpretation: Initial EKG with sinus tachycardia at 01:05/Min; poor R-wave progression along the anterior leads most likely from body habitus; no clear ischemic changes; normal LA and corrected QT. In the repeat EKG, rate is slower at 96/Min. Assessment and Plan (1) Chest pain: Status: Acute (2) Tachycardia: Status: Acute (3) Elevated troponin: Status: Acute Plan Troponin levels are 30, 39 and 36. Slightly elevated. Not entirely clear if she had a in the arrhythmia like atrial fibrillation causing the tachycardia and slight troponin leak or if she truly had a coronary event. Currently, she is free of any symptoms. We will start with an echocardiogram for cardiac function assessment. If indeed there is any obvious wall motion abnormality, then we will need a diagnostic catheterization. If not, we will decide the next steps considering the fact this is a weekend without any immediate access to testing. Discussed with the patient and she agrees. Procedures Date of Service Date of Service: 08/18/25
--- NOTE | 2025-08-18 11:00 | CA_ITS ---
Transthoracic Echocardiogram Patient (Last, First, Middle): Ana Eugene, Gender: F Date of : 1965 Age: 59 Procedure Date: 08/18/2025 Procedure Type: Transthoracic Echocardiogram Location: ER Height: 157.48 cm Weight: 54.43 kg BSA: 1.54 m2 Heart Rate: bpm BP: 123 / 71 mmHg Bankruptcy Legal Assistant: KATHRIN Referring MD: Genet Mejia [employer] Symptoms: chest pain, NSTEMI Study Quality: Adequate ECG Rhythm: Sinus Conclusions: - The left ventricular systolic function is normal. The calculated ejection fraction is 57% by biplane method. - No obvious valvular pathology seen on this study. Findings Left Ventricle Normal left ventricular cavity size. There is normal left ventricular wall thickness. The left ventricular systolic function is normal. The calculated ejection fraction is 57% by biplane method. There is no evidence of regional wall motion abnormalities. Diastolic function is normal for age. Normal left ventricular filling pressures. Peak LV peak GLS -18.1% (normal). Right Ventricle Normal right ventricular cavity size and systolic function. Atria Both atria are normal in size. Aortic Valve There is a normal trileaflet aortic valve. There is no aortic valve stenosis. There is trace (trivial) aortic valve regurgitation. Mitral Valve The mitral valve appears normal. There is no mitral valve regurgitation. There is no mitral valve stenosis. Pulmonic Valve The pulmonic valve is likely normal. Tricuspid Valve There is trace tricuspid valve regurgitation. There is no evidence of pulmonary hypertension. Great Vessels The asc aorta is normal in size. Venous The inferior vena cava is normal in size and collapses greater than 50% with inspiration. Pericardium/Pleural There is no evidence of pericardial effusion. Prior Study Comparison No prior study available for comparison. Recommendations, Care & Conclusions No obvious valvular pathology seen on this study. Measurements 2D Linear Measurements IVSd: 0.72 0.6-0.9/0.6-1.0 cm LVIDd: 3.70 3.9-5.3/4.2-5.9 cm LVIDd Index: 2.40 2.4-3.2/2.2-3.1 cm/m2 LVIDs: 2.63 2.0-3.6 cm LVPWd: 0.72 0.7-1.1 cm LA Diam: 2.30 2.7-3.8/3.0-4.0 cm LAIDs Index: 1.49 1.5-2.3 cm/m2 LV Mass: 88.55 67-162/88-224 g LV Mass Index: 57.50 43-95/49-115 g/m2 LVOT Diam: 2.00 3.0+(-)1.3 cm 2D Systolic Function EF 4C: 56.60 >55% EF 2C: 57.00 >55% EF BiP: 57.40 >55% Mitral Valve MV Pk E: 0.53 MV PK A: 0.66 MV Decel Time: 318.00 E/A: 0.80 E'Lateral: 9.57 E'Medial: 5.98 E/E' Med: 8.90 E/E' Lat: 5.50 PHT: 93.00 MVA PHT: 2.[address]: 1.67 Aortic Valve AoV Pk Ja: 1.33 AoV Mn Ja: 0.90 AoV VTI: 0.28 AoV Pk Grad: 7.00 Aov Mn Grad: 4.00 FROILAN Cont.VTI: 2.18 LVOT LVOT Pk Ja: 0.91 LVOT Mn Ja: 0.60 LVOT VTI: 0.19 LVOT Pk Grad: 3.00 LVOT Mn Grad: 2.00 LVOT Diam: 2.00 LVOT Area: 3.14 Diastolic Function MV Pk E: 0.53 MV Pk A: 0.66 E/A: 0.80 E'Medial: 5.98 E/E' Med: 8.90 E' Laterial: 9.57 E/E' Lat: 5.50 Right Ventricle TAPSE (mm): 21.10 TVS' Ja: 10.20 Tricuspid Valve TR Pk Ja: 1.95 TR Pk Grad: 15.00 RA Press: 3.00 RVSP: 18.00 Great Vessels Aorta Sinus of Valsalva: 2.62 2.0-3.[address] [place]: 2.13 1.7-3.4 cm Ao Asc: 2.80 2.1-3.4 cm Pulmonary Veins Pulm Vein S/D 1.40 Updated in Other Vendor System with Status of Final Saleem Bucio MD electronically signed on 08/18/2025 12:53:51 PM with status of Final
[2025-08-19] VITALS (7 sets, daily range): BP systolic 108–135; BP diastolic 57–77; PULSE 64–93; RESP 18; TEMP 36–36.8; O2SAT 96–98
--- NOTE | 2025-08-19 | CA_ITS ---
Acquisition Time: 2025-08-20 10:31:44 Total Exercise Time: 00:05:00 Test Indications: CP ELEVATED TROP HTN TACHYCARDIA Medications: SEE EMAR Protocol: MARIA ELENA Max HR: 150 BPM 94% of Pred: 159 BPM Max BP: 144/84 mmHG Max Work Load: 4.6 METS Exercise stress test with exercise 5 min of Maria Elena stage 1, achieving 94%, with bilateral arm weakness , without arrythmia, with normotensive response to exercise, without EKG changes meeting criteria for ischemia. Nuclear images pending. Test reviewed with Dr Bucio. Referred By: Saleem Bucio Electronically Signed By: PATI JEAN BAPTISTE
--- NOTE | 2025-08-19 | ECG_ITS ---
Test Reason : SVT Blood Pressure : */* mmHG Vent. Rate : 93 BPM Atrial Rate : 93 BPM P-R Int : 138 ms QRS Dur : 78 ms QT Int : 352 ms P-R-T Axes : 82 -30 68 degrees QTcB Int : 437 ms Poor data quality, interpretation may be adversely affected Normal sinus rhythm Left axis deviation Abnormal ECG When compared with ECG of 17-Aug-2025 23:43, QRS axis Shifted left slight non specific ST change anteior leads Referred By: Don Cedeño Electronically Signed By: MILLY SCHROEEDR
[2025-08-19] MEDS: 0.9 % Sodium Chloride Flush 3 ML SYRINGE IVFLUSH ×3 (00:12→21:26)
[2025-08-19 00:48] LABS: INTERNATIONAL NORM RATIO 0.9 (0.9-1.1); Prothrombin Time 10.6 SEC (10.9-12.4)
--- NOTE | 2025-08-19 06:54 | PM.EVENT ---
Event Note Date of Service: 08/19/25 Event Note: 6:44 am - Episode of SVT noted on tele when she went to the bathroom. Heart rate normalized spontaneously. We will obtain ECG, stat vital signs and start treatment with metoprolol 12 mg p.o. b.i.d.. Time Spent With Patient Time: Total time managing care of this patient today ____ minutes.
[2025-08-19 07:28] LABS: Hematocrit 42.0 % (37.0-47.0); Hemoglobin 14.5 g/dl (12.0-16.0); Mean Corpuscular HGB Conc 34.5 g/dl (31.0-35.0); Mean Corpuscular Hemoglobin 30.9 pg (27.0-33.0); Mean Corpuscular Volume 89.6 fL (80.0-98.0); NRBC Abs Auto 0.000 X10*3/uL (0.0-0.012); NRBC Pct Auto 0.0 /100WBC (0.0-0.2); Platelet Count 303 X10*3/uL (160-400); Red Blood Count 4.69 X10*6/uL (4.20-5.50); White Blood Count 6.6 X10*3/uL (4.8-10.8)
[2025-08-19] MEDS: Aspirin Enteric Coated 81 MG TABLET.DR PO (08:12)
[2025-08-19] MEDS: Metoprolol Tartrate 12.5 MG HALFTAB PO ×2 (08:12→21:26)
--- NOTE | 2025-08-19 08:20 | P.PNIM_ITS ---
Subjective Subjective Date of Service: 08/19/25 Interval History: Chest pain Review of Systems Denies any new symptoms, intermittent tachycardic. No chest pain or shortness of breath Review of Systems: Yes all other systems are reviewed and are negative Physical Exam 2 Exam: Exam: Appearance: Alert.? Oriented X3.? cvs: rrr, [id number] . res: clear to auscultation ,no rhonchii or wheezing abd: no rebound or guarding ,nt, bs present. ext pulses present , no cyanosis . neuro: axo3 , nonfocal. Vital Signs: Vital Signs: Last Vital Signs Temp 97.1 F 08/19/25 07:00 Pulse 93 08/19/25 07:00 Resp 18 08/19/25 07:00 BP 128/76 08/19/25 07:00 Pulse Ox 98 08/19/25 07:00 O2 Del Method Room Air 08/19/25 07:00 BMI result Body Mass Index 22.1 Objective Data Active Medications Acetaminophen (Acetaminophen 325 Mg Tablet) 650 mg PO Q6H PRN PRN Reason: Pain, Mild 1-3,fever,headache Albuterol/Ipratropium (Albuterol/Iprat 2.5/0.5mg 3 Ml Ampul.Neb) 3 ml INHALE Q4H PRN PRN Reason: Shortness of Breath/Wheezing Aspirin (Aspirin Enteric Coated 81 Mg Tablet.Dr) 81 mg PO DAILY [facility] Last Admin: 08/19/25 08:12 Dose: 81 mg Documented By: TIERNEY Calcium Carbonate (Calcium Carbonate 750 Mg Tab.Chew) 750 mg PO Q4H PRN PRN Reason: Heartburn Enoxaparin Sodium (Enoxaparin Sodium 60 Mg/0.6 Ml Syringe) 60 mg SUBCUT Q12H [facility] Last Admin: 08/19/25 00:11 Dose: 60 mg Documented By: BUSSIMIN Magnesium Hydroxide (Milk Of Magnesia 30 Ml Oral.Susp) 30 ml PO DAILY PRN PRN Reason: Constipation Melatonin (Melatonin 3 Mg Tablet) 6 mg PO BEDTIME PRN PRN Reason: Insomnia Metoprolol Tartrate (Metoprolol Tartrate 12.5 Mg Halftab) 12.5 mg PO BID [facility]; Protocol Last Admin: 08/19/25 08:12 Dose: 12.5 mg Documented By: HO.LESSARL Ondansetron HCl (Ondansetron Hcl 4 Mg/2 Ml Vial) 4 mg IVPUSH Q8H PRN PRN Reason: Nausea and Vomiting Polyethylene Glycol (Polyethylene Glycol 3350 17 Gm Powd.Pack) 17 gm PO DAILY PRN PRN Reason: Constipation Senna (Sennosides 8.6 Mg Tablet) 17.2 mg PO BEDTIME [facility] Last Admin: 08/18/25 20:19 Dose: Not Given Documented By: RULA Non-Admin Reason: Patient Refused Sodium Chloride (0.9 % Sodium Chloride Flush 3 Ml Syringe) 3 ml IVFLUSH QSHIFT [facility] Last Admin: 08/19/25 08:14 Dose: 3 ml Documented By: TIERNEY Labs 08/19/25 06:55 08/18/25 06:18 Labs: Laboratory Results - last 24 hr 08/19/25 08/19/25 00:23 06:55 MCV 89.6 MCH 30.9 MCHC 34.5 RDW 12.0 Plt Count 303 MPV 8.5 L Absolute Nucleated RBC 0.000 Nucleated RBC % (auto) 0.0 PT 10.6 L INR 0.9 Assessment and Plan (1) Non-ST elevation TN (NSTEMI): Status: Acute (2) Tachycardia: Status: Acute Assessment and Plan: 59 yo female with PMH exposure to secondhand smoke as a child, hypothyroidism, hypertension currently on lisinopril and amlodipine, anxiety, essential tremor on propranolol PRN, osteoporosis with chronic compression fractures of the spine on Fosamax, history of vertebroplasty, hysterectomy, right foot/ankle injury presents to ED with complaints of hypertension, tachycardia and chest pressure/chest pain that started earlier in the day. Patient being admitted under observation as recommended by Cardiology and was started on weight based Lovenox, aspirin daily. Chest pain/ ?NSTEMI ECHO -seems The left ventricular systolic function is normal. The calculated ejection fraction is 57% by biplane method. No obvious valvular pathology seen on this study. Telemetry ASA 81 mgs daily Lipid panel and A1C 5.2 ECGs negative for STEMI, Posterior ECG negative for STEMI Troponins trending 30 - 39 - 36.5 plan: Tachycardia is mostly sinus-added p.o. metoprolol small dose. Continue aspirin, Lovenox, hold statin mild elevated in LFTs. cardio-continue above, need stress test in the morning Hypertension on lisinopril and amlodipine Recently blood pressure has been elevated and patient has sought care with her PCP and urgent care setting Optimizing blood pressure is 1 of patient's current medical goals Cardiac Low-sodium diet Anxiety/ Stress Continue Wellbutrin and Cymbalta once med rec completed QTC normal Hypothyroidism Continue levothyroxine. TSH within normal limits Osteoporosis with history of compression fractures of the spine and vertebroplasty Continue Fosamax Ongoing need of stay: Chest pain: On aspirin/anticoagulation, need further cardiac testing-stress test in a.m.. Quality Stroke Does the patient have a stroke diagnosis?: No Reason for No Anti-thrombotic by Day Two: N/A - Med Ordered VTE Prior VTE?: No VTE Risk Level:: Medical - moderate - high VTE Device Contraindication: N/A - Device Ordered VTE Drug Contraindication: N/A - Med Ordered
--- NOTE | 2025-08-19 10:47 | MHC.CM.PN ---
Pt. lives with her , PCP is confirmed: Karlene Boland MD. HCP is her and her son, we do not have a copy on file. Pt. does not use home health services or DME. Family to transport home at DC, DCP: home, self care, CM to follow for DC needs.
--- NOTE | 2025-08-19 10:49 | P.PNCA_ITS ---
Subjective Subjective Date of Service: 08/19/25 Interval history: She states she feels fine. She does not have any chest pain or any other complaints. Review of Systems Review of Systems Yes all other systems are reviewed and are negative Constitutional: Reports as per HPI and Reports no additional constitutional complaints Eyes: Reports as per HPI and Denies no additional eye complaints Denies system reviewed and no additional complaints, except as documented and Reports as per HPI Cardiovascular: Reports as per HPI, Reports no additional cardiovascular complaints, Denies acrocyanosis, Denies cool extremities, Denies chest pain, Denies leg edema, Denies lightheadedness, Denies palpitations and Denies dyspnea Respiratory: Reports as per HPI, Denies no additional respiratory complaints and Denies dyspnea Gastrointestinal: Reports as per HPI and Denies no additional gastrointestinal complaints Genitourinary: Reports as per HPI Musculoskeletal: Reports no additional musculoskeletal complaints and Reports as per HPI Skin/Breast: Reports system reviewed and no additional complaints, except as docu Reports system reviewed and no additional complaints, except as documented and Reports as per HPI Psychiatric: Reports no additional psychiatric complaints and Reports as per HPI Endocrine: Reports no additional endocrine complaints, Reports as per HPI and Denies palpitations Hematologic/Lymphatic: Reports no additional hematologic/lymphatic complaints and Reports as per HPI Allergic/Immunologic: Reports no additional allergic/immunologic complaints and Reports as per HPI Physical Exam Vital Signs: Last Vital Signs Temp 97.1 F 08/19/25 07:00 Pulse 93 08/19/25 07:00 Resp 18 08/19/25 07:00 BP 128/76 08/19/25 07:00 Pulse Ox 98 08/19/25 07:00 O2 Del Method Room Air 08/19/25 07:00 BMI result Body Mass Index 22.1 Const General: comfortable and no acute distress Orientation/consciousness: patient oriented x3 HEENT Other: Unremarkable Head: Yes normal to inspection Neck Neck: Yes normal visual inspection Chest Chest palpation & inspection: normal inspection of the chest Resp Auscultation: clear to auscultation bilaterally Cardio Palpation: normal PMI Heart sounds: S1 normal heart sound present, S2 normal heart sound present, no gallops, no murmurs and no rubs GI Palpation (GI): Soft to palpation Back/Spine/Pelvis Other: unremarkable Skin General skin exam: no rashes or lesions noted Neuro General: patient oriented x3 Extrem General: Yes normal to inspection Psych Mental Status: mental status grossly normal Objective Labs and Meds 08/19/25 06:55 08/18/25 06:18 Lab results: Laboratory Results - last 24 hr 08/19/25 08/19/25 00:23 06:55 WBC 6.6 RBC 4.69 Hgb 14.5 Hct 42.0 MCV 89.6 MCH 30.9 MCHC 34.5 RDW 12.0 Plt Count 303 MPV 8.5 L Absolute Nucleated RBC 0.000 Nucleated RBC % (auto) 0.0 PT 10.6 L INR 0.9 Progress Note: A&P Assessment and plan (1) Chest pain: Status: Acute (2) Hypertension: Status: Acute (3) Elevated troponin: Status: Acute Plan Initial presentation was for high heart rates in the 140s accompanied by chest pain but there was no arrhythmias detected here. Just sinus tachycardia. Low-grade troponin leak. Nonspecific changes in the EKG but nothing clear-cut for ischemia. Echocardiogram shows normal LVEF and no wall motion abnormalities. Overall, not entirely clear if she had an atrial arrhythmias like atrial fibrillation causing the high heart rates and chest pain with low-grade troponins. Less likely acute plaque rupture as the presentation is somewhat atypical. Any case, we discussed about further planning including a stress test here versus transfer for a diagnostic catheterization. We agreed on starting with a stress test tomorrow and if any overt abnormalities, then we will consider catheterization. Okay to keep on Lovenox for 48 hours. Also on aspirin and some low-dose beta- blockers. We will follow up with you. Time Spent With Patient Time: Total time managing care of this patient today ____ minutes. Progress Note: Quality Stroke Does the patient have a stroke diagnosis?: No Reason for No Anti-thrombotic by Day Two: N/A - Med Ordered Procedures Date of Service Date of Service: 08/19/25
[2025-08-20 03:14] VITALS: BP 121/65; PULSE 67; RESP 18; TEMP 36.6; O2SAT 99
[2025-08-20 07:09] VITALS: BP 127/68; PULSE 73; RESP 18; TEMP 36.4; O2SAT 97
[2025-08-20] MEDS: buPROPion HCl XL 300 MG TAB.ER.24H PO (09:01)
[2025-08-20] MEDS: Aspirin Enteric Coated 81 MG TABLET.DR PO (09:01)
[2025-08-20] MEDS: 0.9 % Sodium Chloride Flush 3 ML SYRINGE IVFLUSH (09:03)
[2025-08-20 09:58] LABS: HBS Num1 20.84 mIU/mL (0-7.99); HBc Num1 0.05 S/CO (0.00-0.79); HBsAGNum1 0.34 S/CO (0.00-0.99); Hepatitis A Antibody IgM 0.26 Index (0-0.79); Hepatitis B Surface Antigen Negative (Negative); ~HepC Num1 0.08 S/CO (0.00-0.79); ~Hepatitis A Antibody IgM Nonreactive (Nonreactive); ~Hepatitis B Surface Antibody REACTIVE (Nonreactive); ~Hepatitis C Antibody Nonreactive (Nonreactive)
--- NOTE | 2025-08-20 10:44 | PM.PNCARD ---
Subjective Subjective Date of Service: 08/20/25 Principal diagnosis: Elevated troponin, tachycardia Interval history: Patient noted to have frequent sinus tachycardia with heart rate up to 150 beats per minute. He is voiding undergoing myocardial perfusion imaging. Echocardiogram showed normal LV EF with no wall motion abnormality. Patient not having any symptoms of palpitations. Review of Systems Review of Systems Yes all other systems are reviewed and are negative Physical Exam Vital Signs: Last Vital Signs Temp 97.5 F 08/20/25 07:09 Pulse 73 08/20/25 07:09 Resp 18 08/20/25 07:09 BP 127/68 08/20/25 07:09 Pulse Ox 97 08/20/25 07:09 O2 Del Method Room Air 08/20/25 07:09 BMI result Body Mass Index 22.1 Const General: comfortable and no acute distress Orientation/consciousness: patient oriented x3 HEENT Other: Unremarkable Head: Yes normal to inspection Neck Neck: Yes normal visual inspection Chest Chest palpation & inspection: normal inspection of the chest Resp Auscultation: clear to auscultation bilaterally Cardio Palpation: normal PMI Heart sounds: S1 normal heart sound present, S2 normal heart sound present, no gallops, no murmurs and no rubs GI Palpation (GI): Soft to palpation Back/Spine/Pelvis Other: unremarkable Skin General skin exam: no rashes or lesions noted Neuro General: patient oriented x3 Extrem General: Yes normal to inspection Psych Mental Status: mental status grossly normal Objective Labs and Meds 08/19/25 06:55 08/18/25 06:18 Lab results: Laboratory Results - last 24 hr 08/20/25 09:09 Hepatitis A IgM Ab Nonreactive Hep Bs Antigen Negative Hep Bs Antibody REACTIVE Hep B Core Total Ab Nonreactive Hepatitis C Ab (EIA) Nonreactive Progress Note: A&P Assessment and plan (1) Elevated troponin: Status: Acute Assessment and Plan: Elevated troponin with fast heart rate with atypical chest pain. Troponins mostly flat with normal systolic function as well as no wall motion abnormality. To undergo myocardial perfusion imaging. If this is normal patient can be discharged home on low-dose aspirin therapy and may pursue outpatient coronary CTA to further evaluate for presence of coronary disease and further guidance for treatment. Unusual for troponin elevation although symptoms of fairly atypical. This was discussed with her. If her stress test was abnormal will need cardiac catheterization. (2) Tachycardia: Status: Acute Assessment and Plan: Tachycardia on admission with heart rate up to 140 although noted mostly sinus tachycardia with no significant arrhythmias. Question atrial arrhythmias. Will need outpatient event monitor. Meanwhile will switch her to long-acting propranolol 80 mg daily on discharge and discontinue metoprolol therapy. Could be related to anxiety/panic. May need treatment along those lines as well and evaluation per those. Further management decisions based on the findings of stress test Time Spent With Patient Time: Total time managing care of this patient today ____ minutes. Progress Note: Quality Stroke Does the patient have a stroke diagnosis?: No Reason for No Anti-thrombotic by Day Two: N/A - Med Ordered Procedures Date of Service Date of Service: 08/20/25
--- NOTE | 2025-08-20 10:57 | PM.DS ---
DS: Providers Provider Date of Service: 08/20/25 Date of admission: 08/18/25 00:54 Date of discharge: 08/20/25 Primary care physician: Karlene Boland MD Consults: 08/18/25 00:58 Consult to Cardiology Routine Consulting Provider: [facility] Reason for consultation: chest pain, NSTEMI Has provider been notified: Yes Attending physician on discharge: Ana Jean Discharging clinician: Ana Jean DS: Diagnosis Discharge Diagnosis (1) Elevated troponin: Status: Acute (2) Tachycardia: Status: Acute DS: Summary Hospital Course Hospital Course: HPI:59 yo female with PMH exposure to secondhand smoke as a child, hypothyroidism, hypertension currently on lisinopril and amlodipine, anxiety, essential tremor on propranolol PRN, osteoporosis with chronic compression fractures of the spine on Fosamax, history of vertebroplasty, hysterectomy, right foot/ankle injury presents to ED with complaints of hypertension, tachycardia and chest pressure/chest pain that started earlier in the day. Patient had lunch with her sister and then returned home with a sensation in her chest that felt unusual. Patient also felt that she was numb in both arms. Patient denies any cervical spine issues. Patient denied any shortness of breath, productive cough, headache, fever, nausea or vomiting. Patient has a home blood pressure monitor and continued to monitor pressure. Patient's blood pressure was reading on the low side, 90's over 70's to 115 systolic with a tachycardia approximately 140. Patient was checking her watch and it was noted that she was sinus with no arrhythmia. 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 Patient did take 1 dose of propranolol which had no effect on her heart rate. Patient discussed things with her spouse and it was decided that patient should come in to be seen. Patient does offer that she has been having increased stress at work. Patient denies active tobacco use, drinks alcohol on occasion only and denies marijuana use. Patient has no illicit drug history. Workup in the ED included chest x-ray which was negative for any acute findings, EKG as well as posterior EKG were was negative for STEMI and no new left bundle-branch block. EKG reading is normal sinus rhythm with normal QTC, 96 beats per minute. No ST elevations or signs of ischemia. No T-wave inversions or ST depressions. Patient's labs note a mild leukocytosis, AST 50, ALT 40. Troponins 30.5 than 39.0. TSH 3.12. Patient deferred testing for COVID, flu and RSV. Vital signs currently stable blood pressure 132/71, heart rate 89, respiratory rate 18, pulse ox 98% on room air. Patient remains afebrile. Patient currently chest pain-free and states her symptoms have resolved. Patient understands that she had being admitted under observation for echo in the morning and review by Cardiology. Patient does state she has been working with a newer nurse practitioner in regards to her blood pressure control. Patient has gone to urgent care intermittently for elevated blood pressure being on lisinopril and amlodipine. Hydrochlorothiazide has not been introduced so far. Renal function is stable. Patient does take propranolol PRN for essential tremor. Hospital course: Patient came to the hospital because of chest pain-found to have elevated troponin, EKG seems fine, patient was started on, aspirin and Lovenox for possible NSTEMI. Further workup with echo and stress test was done: Echo seems fine, stress test negative ,Tachycardia on admission with heart rate up to 140 although noted mostly sinus tachycardia with no significant arrhythmias. Question atrial arrhythmias. Will need outpatient event monitor. Meanwhile will switch her to long-acting propranolol 80 mg daily on discharge and discontinue metoprolol therapy. Could be related to anxiety/panic. May need treatment along those lines as well and evaluation per those. Elevated LFTs in the setting of using alcohol/hepatic steatosis-may need consider statin out patiently if repeated LFT outpatient improved. Patient was strongly advised to abstain from alcohol. propranolol adjusted to 80 mg per cardio. Cardio may arrange their own outpatient appointment plan: [place] 80 mg daily Abstain from alcohol strongly encouraged Monitor LFT outpatient and lipid panel-and if needed statin use outpatient as per PCP. Cardiology may arrange their own appointment. Above management discussed with the patient detail length she understand and in agreement with the above plan, time spent 45 minute. All questions answered. Time Attestation Total time managing care of this patient today: 45 mintues. Discharge Coordination Time (in mins): 45 min Quality: Safe Use of Opioids Does Pt have an Active Cancer Diagnosis on the Problem List?: No Quality: Stroke Does the patient have a stroke diagnosis?: No Physical Exam Exam: Exam: Appearance: Alert.? Oriented X3.? cvs: rrr, [id number] . res: clear to auscultation ,no rhonchii or wheezing abd: no rebound or guarding ,nt, bs present. ext pulses present , no cyanosis . neuro: axo3 , nonfocal Vital Signs: Vital Signs: Last Vital Signs Temp 97.5 F 08/20/25 07:09 Pulse 73 08/20/25 07:09 Resp 18 08/20/25 07:09 BP 127/68 08/20/25 07:09 Pulse Ox 97 08/20/25 07:09 O2 Del Method Room Air 08/20/25 07:09 BMI result Body Mass Index 22.1 DS: Data Data Completed and Pending Labs on day of discharge: Laboratory Results - last 24 hr 08/20/25 09:09 Hepatitis A IgM Ab Nonreactive Hep Bs Antigen Negative Hep Bs Antibody REACTIVE Hep B Core Total Ab Nonreactive Hepatitis C Ab (EIA) Nonreactive Discharge Plan Discharge Anticipated Discharge Date/Time: 08/20/25 10:52 Patient Disposition: Home, Self-Care Discharge Diagnosis: Chest pain, elevated troponin, stress test pending Referrals: Karlene Boland MD [Primary Care Provider, [facility]] - 1 Week Discharge Medications: New propranolol 80 mg Capsule,Extended Release 24 Hr 80 mg PO DAILY Qty: 90 0RF Protocol: Hold for SBP/HR < HOLD for SBP < : 90 HOLD for HR < : 60 Continued alendronate 70 mg tablet 70 mg PO LY@0900 amlodipine 5 mg tablet 5 mg PO DAILY lisinopril 40 mg tablet 40 mg PO DAILY bupropion HCl 300 mg tablet extended release 24 hr 300 mg PO DAILY duloxetine 60 mg capsule,delayed release(DR/EC) 60 mg PO BID thyroid (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 Health Concerns: As above. Plan of Treatment: As above. Abstain from alcohol strongly encouraged Monitor LFT outpatient and lipid panel-and if needed statin use outpatient as per PCP. Cardiology may arrange their own appointment. Assessment: As above.
--- NOTE | 2025-08-20 11:38 | MHC.CM.PN ---
EMR REVIEWED, PT AWAITING STRESS TEST, PER CARDIO/MD IF NORMAL PT CAN DC HOME TODAY, IF NOT PT WILL DC TO [facility] [place]. CM WILL CONT TO FOLLOW DC NEEDS.
--- NOTE | 2025-08-21 15:26 | P.CDIM_ITS ---
PROVIDER RESPONSE TEXT: To clarify, the appropriate diagnosis supported by the clinical indicators: Pathologic compression fracture due to osteoporosis QUERY TEXT: PHYSICIAN'S DOCUMENTATION REQUEST Date of Query: 08/21/2025 06:05 AM EDT Patient Name: AKSHAT WARNER Admit Date: 08/18/2025 Dear Ana Jean MD, RETROSPECTIVE QUERY A review of the medical record indicates additional documentation may be needed. Please review below and update the documentation accordingly. Clinical Indicators: Progress note 08/19/25 and Discharge summary - Osteoporosis with chronic compression fractures of the spine on Fosamax. History of Vertebroplasty Please provide the following additional clarification regarding the fracture Etiology and Type: Pathologic compression fracture due to osteoporosis Pathologic due to neoplastic disease Pathologic due to other disease (please specify) Nontraumatic compression fracture Traumatic compression fracture Other (explain) Clinically unable to determine (explain) Thank you, Maye Honeycutt, CCS, CDIS Use of terms such as suspected, likely, concern for, or probable (associated with a specific diagnosis that is being evaluated, monitored, or treated as if it exists) are acceptable and can be coded in the inpatient setting, when documented at the time of discharge. Please use your independent medical judgment in providing your response. THIS QUERY IS PART OF THE PERMANENT MEDICAL RECORD
== END 2025-08-20 15:15 | disposition home or self-care (01) | DRG 313 ==
LOC: HO.ED 08-18 00:43 → HO.EDOVER 08-18 00:57 → HO.IMC 08-18 15:54
PROVIDERS: Admitting Provider Nurse Practitioner Family; Emergency Provider Emergency Medicine Emergency Medical Services; PCP Family Medicine; Visit Provider Internal Medicine
DX: R07.9 Chest pain, unspecified (principal); I47.10 Supraventricular tachycardia, unspecified; M80.88XA Other osteoporosis with current pathological fracture, vertebra(e), initial encounter for fracture; R79.89 Other specified abnormal findings of blood chemistry; I10 Essential (primary) hypertension; E03.9 Hypothyroidism, unspecified; F41.9 Anxiety disorder, unspecified; Z79.890 Hormone replacement therapy; Z79.899 Other long term (current) drug therapy
CPT/HCPCS: 36415; 71045; 78452; 80053; 80061; 83036; 83735; 84443; 84484; 85025; 85027; 85379; 85610; 85730; 86704; 86706; 86709; 86803; 87340; 93005; 93017; 93306; 99285; A9500; J0280; J1650; J2785; Q9957

== ENCOUNTER → 2025-08-17 22:14 | Outpatient (BNV) | payer OTHER, SELFPAY | PROVIDERS: Admitting Provider Nurse Practitioner Family; Emergency Provider Emergency Medicine Emergency Medical Services; PCP Family Medicine; Visit Provider Internal Medicine | DX: R07.89 Other chest pain (principal); R00.0 Tachycardia, unspecified | CPT/HCPCS: 93010 ==

== ENCOUNTER → 2025-08-17 23:33 | Outpatient (BNV) | payer OTHER, SELFPAY | PROVIDERS: Admitting Provider Nurse Practitioner Family; Emergency Provider Emergency Medicine Emergency Medical Services; PCP Family Medicine; Visit Provider Radiology Diagnostic Radiology | DX: R07.89 Other chest pain (principal) | CPT/HCPCS: 71045 ==

== ENCOUNTER 2025-08-18 00:54 | Outpatient (BNV) | payer OTHER, SELFPAY | END 2025-08-19 07:58 | PROVIDERS: Admitting Provider Nurse Practitioner Family; Emergency Provider Emergency Medicine Emergency Medical Services; PCP Family Medicine; Visit Provider Internal Medicine | DX: R94.31 Abnormal electrocardiogram [ECG] [EKG] (principal); I47.10 Supraventricular tachycardia, unspecified | CPT/HCPCS: 93010 ==

== ENCOUNTER 2025-08-18 00:54 | Outpatient (BNV) | payer OTHER, SELFPAY | END 2025-08-20 10:06 | PROVIDERS: Admitting Provider Nurse Practitioner Family; Emergency Provider Emergency Medicine Emergency Medical Services; PCP Family Medicine; Visit Provider Internal Medicine Cardiovascular Disease | DX: R07.9 Chest pain, unspecified (principal); R79.89 Other specified abnormal findings of blood chemistry | CPT/HCPCS: 78452 ==

== ENCOUNTER → 2025-08-18 00:54 | Outpatient (BNV) | payer OTHER, SELFPAY | PROVIDERS: Admitting Provider Nurse Practitioner Family; Emergency Provider Emergency Medicine Emergency Medical Services; PCP Family Medicine; Visit Provider Internal Medicine | DX: R79.89 Other specified abnormal findings of blood chemistry (principal); R00.0 Tachycardia, unspecified | CPT/HCPCS: 99233 ==

== ENCOUNTER → 2025-08-18 00:54 | Outpatient (BNV) | payer OTHER, SELFPAY | PROVIDERS: Admitting Provider Nurse Practitioner Family; Emergency Provider Emergency Medicine Emergency Medical Services; PCP Family Medicine; Visit Provider Nurse Practitioner Family | DX: I21.4 Non-ST elevation (NSTEMI) myocardial infarction (principal); R00.0 Tachycardia, unspecified | CPT/HCPCS: 99231; 99239; 99499 ==

== ENCOUNTER 2025-09-13 13:51 | Outpatient (AMB) | payer OTHER, SELFPAY ==
--- NOTE | 2025-09-13 13:53 | A.OFFVIS_ITS ---
Vital Signs 09/13/25 13:54 Height 5 ft 2 in Weight 121 lb 4.068 oz BMI 22.2 BP 120/50 L Blood Pressure Location Lt brachial Position Sitting Pulse 89 Pulse Source Pulse Oximeter Intake Visit Reasons[place] [facility] [place] Fire[employer] Cutter Required: No Accompanied by: Self / Same As Patient Allergies No Known Allergies Allergy (Verified 09/13/25 13:57) Medication List - Last Reconciled 09/13/25 by Rajendra Boland NP alendronate 70 mg PO LY@0900 amlodipine 5 mg PO DAILY bupropion HCl XL 300 mg PO DAILY calcium 26-magnesium 15-zinc 167 mg calcium- 83 mg-5 mg 1 cap PO DAILY coenzyme Q10 10 mg PO ONCE duloxetine 60 mg PO BID lisinopril 40 mg PO DAILY propranolol ER 80 mg See Protocol PO DAILY thyroid (pork) (CONSTRUCTION SUPERINTENDENT Thyroid) 60 mg PO DAILY@0600 HPI Comments Details: This is a 59-year-old female patient coming in for a hospital discharge follow- up. Patient with a history of hypertension, hypothyroidism, and anxiety who was recently in the hospital because she was out with her sister and was not feeling like herself which she thought would pass but upon returning home she she continued to feel the same way and therefore she checked her blood pressure and at that time she noticed that her heart rate was in the 140s. She also noticed that she was getting some discomfort in her chest and therefore brought herself to the emergency room. Patient was found to have elevated troponins for which patient underwent a myocardial perfusion study that was negative. Patient was discharged on 80 mg propranolol and noticed that her rate has improved significantly. In the hospital was noted that patient did have mildly elevated LFTs but patient states that she was drinking the night before for the anniversary of her friends 's passing but otherwise only drinks occasionally. Today, patient is reporting feeling well overall without any exertional symptoms of chest pain, shortness of breath, palpitations, dizziness, orthopnea, PND, leg edema, presyncope or syncope. Patient is otherwise reporting compliance with all her medications. [facility] Medical History Right foot injury Osteoporosis Post hysterectomy menopause Anxiety Essential tremor Hypothyroidism Hypertension Surgical History H/O vertebroplasty Family History Sister H/O heart surgery Brother Hypertension Mother Hypertension Social History Household Members: Spouse Housing: House Do you presently have visiting nurse or other home services: No Alcohol intake: current Alcohol intake frequency: a few times a week Alcohol type: hard liquor Patient Tobacco Use Status: Never used Tobacco service: No Review of Systems Const Denies daytime sleepiness, Denies difficulty sleeping, Denies snoring, Denies stops breathing during sleep and Denies weakness Card Denies chest pain, Denies rapid heart rate, Denies irregular heart rhythm, Denies claudication, Denies leg edema, Denies lightheadedness, Denies palpitations, Denies dyspnea, Denies dyspnea on exertion, Denies orthopnea, Denies paroxysmal nocturnal dyspnea and Denies slow heart rate Resp Denies cough, Denies dyspnea, Denies dyspnea on exertion and Denies snoring GI Reports no additional complaints, Denies hematochezia, Denies change in stool character and Denies dyspepsia Musc Denies abnormal gait, Denies muscle weakness and Denies numbness Neuro Denies abnormal gait, Denies numbness and Denies weakness Endo Denies palpitations Physical Exam Vital Signs: Last Vital Signs Pulse 89 09/13/25 13:54 BP 120/50 L 09/13/25 13:54 BMI result Body Mass Index 22.2 Const General: cooperative, healthy appearing, comfortable and no acute distress Orientation/consciousness: patient oriented x3 HEENT Head: Yes normal to inspection Neck Neck: Yes normal visual inspection, Yes trachea midline and Yes supple Chest Chest palpation & inspection: normal inspection of the chest Resp Effort & Inspection: normal respiratory effort Auscultation: clear to auscultation bilaterally, no crackles, no rales, no rhonchi and no wheezes Cardio Jugular venous distension: no JVD Palpation: normal PMI Rate: regular rate Rhythm: regular rhythm Heart sounds: S1 normal heart sound present, S2 normal heart sound present, no click, no gallops, no murmurs and no rubs Peripheral pulses: Peripheral pulses 2+ throughout GI Inspection: Yes normal to inspection Palpation (GI): Soft to palpation Auscultation: normal bowel sounds Skin General skin exam: no rashes or lesions noted Neuro General: patient oriented x3 Extrem General: Yes normal to inspection, No no pedal edema and No calf tenderness Psych Appearance: grossly normal Mental Status: mental status grossly normal Speech and movement: Normal speech and movement present Assessment & Plan Assessment & Plan (1) Elevated troponin: Code(s): R79.89 - Other specified abnormal findings of blood chemistry Category: Medical (2) Chest pain: Code(s): R07.9 - Chest pain, unspecified Category: Medical (3) Tachycardia: Code(s): R00.0 - Tachycardia, unspecified Category: Medical (4) Hypertension: Code(s): I10 - Essential (primary) hypertension Category: Medical (5) Hospital discharge follow-up: Code(s): Z09 - Encounter for follow-up examination after completed treatment for conditions other than malignant neoplasm Plan 08/18/2025-echo study showed a normal LV systolic function with an ejection fraction at 57% with no wall motion abnormalities or valvular pathology. 08/19/2025-patient underwent a myocardial perfusion study that showed normal perfusion. Patient was in the hospital for chest discomfort where she was noted to have elevated troponins and underwent stress test. Patient was also noted to have mildly elevated LFTs but had reported that she was drinking the night before with her friend as it was anniversary of her 's passing. Patient also had a lipid profile done there with LDL at 100, however, patient is unsure how well she was fasting during that time. Patient does understand a her LDL goal should be closer to 70s. Given the mildly elevated troponins with her chest discomfort, we will pursue a coronary CTA to assess for coronary artery disease. Further treatment based on findings. Patient would also like to hold off on cholesterol medications for now. Patient was noted to be mostly sinus tachycardia and therefore increase in propranolol. Continue the same. Due to question of atrial arrhythmias, we will also obtain a cardiac even monitor. Blood pressure today is well-controlled. Continue current regimen. Advised on heart healthy diet, regular exercise, adequate hydration, avoiding stimulants, med compliance, and management of vascular risk factors. Follow up after coronary CTA. In the interim, patient will call the office with any concerns or change in symptoms. Advised to seek ER care in case of exertional chest pain not resolved with rest. This note was generated using voice recognition software. While every effort has been made to ensure accuracy and proper bread panner, there may be occasional errors that could affect the content or meaning of the described symptoms. Orders: Orders Basic Metabolic Panel Today R07.9 - Chest pain, unspecified CT Cardiac Coronary Angio Today R07.9 - Chest pain, unspecified ECG 30 day event monitor Today I49.8 - Other specified cardiac arrhythmias Coding Level of Care Code Est Pt Level 4 (63013) Complex EM visit Add On G2211 Diagnoses Elevated troponin R79.89 Chest pain R07.9 Tachycardia R00.0 Hypertension I10 Hospital discharge follow-up Z09 Time Spent (min) 31 Comment Time spent in reviewing the chart, test results, assessment, counseling and documentation.
[2025-09-13 13:54] VITALS: BP 120/50; PULSE 89; BMI 22.2
--- OUTSIDE RECORDS SUMMARY | 2025-09-13 16:49 | XMS_ITS | Clinical Summary ---
Author Organization [facility] Address [address] [place], [place] [id number] Care Team Providers Care Sorter Packer Name Role Phone Pcp, No Primary Care [...] Description 07/11/2025 2:25 PM EDT Office Visit [facility] [address] [phone] Piyush Bee MD Nguyen, Nam V, PA [...] 50+ (1 of 1 - PCV) 2013 RSV Vaccine 50 years and old er and Patients (1 - Risk 50-74 years 1-dose series) 2013 Zoster (Shingles) Vaccine (1 of 2) 2013 Influenza Vaccine 06/15/2025 COVID-19 Vaccine ( - [...] Last 3 Months Insurance [employer] [place] [id number] [place] [id number] Care Teams Sorter Packer Relationship Specialty Start Date End Date Pcp, No PCP - General General Medicine 07/11/25
--- OUTSIDE RECORDS SUMMARY | 2025-09-13 16:49 | XMS_ITS | Encounter Summary ---
Author Organization [facility] Address [address] [place] [address] Care Team Providers Care Family Preservation Officer Name Role Phone Pcp, No Primary Care Provider Unavailabl e Encounter Details Date Type Department Care Team (Late st Contact Info) Description 11/23/2022 Erroneous Encounter [facility] DEPT [address] [facility] [place] [phone] Provider, MD Melvi Social History [...] on filedocumented in this encounter Care Teams Family Preservation Officer Relationship Specialty Start Date End Date Pcp, No PCP - General General Medicine 07/11/25 documented as of this encounter
== END 2025-09-13 14:20 | disposition home or self-care (01) ==
LOC: HO.HCS 13:52
PROVIDERS: PCP Family Medicine
DX: R79.89 Other specified abnormal findings of blood chemistry (principal); R07.9 Chest pain, unspecified; R00.0 Tachycardia, unspecified; I10 Essential (primary) hypertension; Z09 Encounter for follow-up examination after completed treatment for conditions other than malignant neoplasm
CPT/HCPCS: 99214

== ENCOUNTER → 2025-10-04 13:54 | Outpatient (REF) | payer OTHER, SELFPAY ==
--- OUTSIDE RECORDS SUMMARY | 2025-10-04 19:20 | XMS_ITS | Clinical Summary ---
Author Organization [facility] Address [address] [place] [id number] Care Team Providers Care Fisher Weir Name Role Phone Pcp, No Primary Care [...] Description 07/11/2025 2:25 PM EDT Office Visit [facility] [address] [phone] Piyush Bee MD Nguyen, Nam V, PA [...] Last 3 Months Insurance [employer] [place] [id number] [place] [id number] Care Teams Fisher Weir Relationship Specialty Start Date End Date Pcp, No PCP - General General Medicine 07/11/25
== END ==
LOC: HO.CARD 13:54
DX: I49.8 Other specified cardiac arrhythmias (principal)
CPT/HCPCS: 93270

== ENCOUNTER → 2025-10-04 14:00 | Outpatient (BNV) | payer OTHER, SELFPAY | PROVIDERS: Visit Provider Internal Medicine Cardiovascular Disease | DX: I49.8 Other specified cardiac arrhythmias (principal) | CPT/HCPCS: 93272 ==